=== PATIENT | male | born 1990 | race Caucasian/White ===

== ENCOUNTER 2023-04-28 05:32 | Day surgery (SDC) | payer SELFPAY ==
[~2023-04-28] VITALS: Ht 182.9 cm; Wt 85.0 kg
[~2023-04-28 05:32] MED LIST: CLEOCIN HCL300 MG PO; PERCOCET 325 MG1 TA2 PO
[2023-04-28] MEDS ORDERED: NORCO 325 MG-51 TAB PO (05:54)
[2023-04-28 05:55] VITALS: BP 133/80; PULSE 69; TEMP 97.7
[2023-04-28] MEDS ORDERED: AMOXICILLIN/CLA1 TA1 PO (05:55)
[2023-04-28 08:25] VITALS: BP 132/73; PULSE 65; TEMP 97.3
[2023-04-28 08:45] VITALS: BP 135/68; PULSE 64; TEMP 97.6
--- NOTE | 2023-04-28 12:30 | NUR ---
0819 RECEIVED POST OP REPORT FROM CLEMENTE RN, PACU. 0825 PT RETURNED TO BAY 8, ALERT AND ORIENTED, BREATHING EVEN AND UNLABORED. 0835 PT GIVEN JUICE AND MUFFIN FOR PO CHALLENGE, TOLERATED WELL. 09 REVIEWED PHYSICIAN DISCHARGE INSTRUCTIONS AND PT EDUCATIONAL MATERIAL W/ PT AND HIS MOTHER. QUESTIONS INVITED AND ANSWERED. 09 PT TO LOBBY VIA WHEEL CHAIR FOR RIDE HOME W/ MOTHER IN POV.
== END 2023-04-28 09:10 | disposition home or self-care (01) ==
LOC: SDCO 05:32
DX: K60.2 Anal fissure, unspecified (principal)
CPT/HCPCS: J1100; J1885; J2405; J2704; J3010; J7120